=== PATIENT | female | born 1930 | race Caucasian/White ===

== ENCOUNTER 2016-07-05 08:16 | Outpatient (CLI) | payer MEDICARE ==
[2016-07-05 12:58] LABS: ALT (SGPT) 14 U/L (0-55); AST (SGOT) 16 U/L (5-34); Alkaline Phosphatase 92 U/L (40-150); Anion Gap 12 mmol/L (10-20); BUN (Urea Nitrogen) 26 mg/dL (9.8-20.1); Bilirubin, Direct 0.4 mg/dL (0.1-0.3); Bilirubin, Total 1.1 mg/dL (0.2-1.2); Calc. Creatinine Clearance 0 mL/min (70-130); Calcium 9.7 mg/dL (7.8-10.44); Carbon Dioxide 16 mmol/L (23-31); Chloride 119 mmol/L (98-107); Estimated GFR-MDRD 22; LDL Cholesterol, Calculated 37 mg/dL; Protein, Total 6.5 g/dL (5.8-8.1)
[2016-07-05 13:23] LABS: Hemoglobin A1c 5.3 % (4.0-6.0)
[2016-07-05 13:50] LABS: #Eosinphils 0.2 thou/uL (0.0-0.7); #Monocytes 0.4 thou/uL (0.11-0.59); #Neutrophils 3.2 thou/uL (1.40-6.50); %Basophils 0.4 % (0.0-1.0); %Eosinophils 4.2 % (0.0-10.0); %Lymphocytes 20.7 % (21.0-51.0); %Monocytes 8.8 % (0.0-10.0); Anisocytosis SLIGHT = 6-15 cells (100X) (0-5/hpf); Hematocrit 38.7 % (36.0-47.0); Mean Platelet Volume 6.4 fL (7.4-10.4); Red Blood Cell (RBC) Count 4.71 mill/uL (4.20-5.40); White Blood Cell (WBC) Count 4.8 thou/uL (4.8-10.8)
== END 2016-07-05 08:17 ==
LOC: NAVSJIPCSP 08:16
PROVIDERS: ATTEND Family Medicine
DX: E78.5 Hyperlipidemia, unspecified (principal); E20.9 Hypoparathyroidism, unspecified; I12.9 Hypertensive chronic kidney disease with stage 1 through stage 4 chronic kidney disease, or unspecified chronic kidney disease; N18.9 Chronic kidney disease, unspecified; N31.0 Uninhibited neuropathic bladder, not elsewhere classified; Z79.899 Other long term (current) drug therapy
CPT/HCPCS: 36415; 80048; 80061; 80076; 83036; 84443; 85025

== ENCOUNTER 2016-07-13 11:13 | Outpatient (CLI) | payer MEDICARE ==
[2016-07-13 12:36] LABS: Bilirubin Negative (Negative); Blood, Urine Large (Negative); Glucose, Urine (Dipstick) Negative (Negative); Ketone, Urine Negative (Negative); Nitrite Negative (Negative); Protein, Urine (Dipstick) 100 mg/dL (Neg-Trace); Urobilinogen 0.2 mg/dL (0.2-1.0)
[2016-07-13 12:43] LABS: Anion Gap 17 mmol/L (10-20); BUN (Urea Nitrogen) 37 mg/dL (9.8-20.1); Calc. Creatinine Clearance 0 mL/min (70-130); Carbon Dioxide 17 mmol/L (23-31); Chloride 109 mmol/L (98-107); Estimated GFR-MDRD 18
[2016-07-13 13:17] LABS: Bacteria/HPF 1+ HPF (None Seen); Squamous Epithelial 0-3 HPF (0-3)
== END 2016-07-13 11:14 | disposition home or self-care (01) ==
LOC: NAVSJIPCSP 11:13
PROVIDERS: ATTEND Urology
DX: N30.21 Other chronic cystitis with hematuria (principal)
CPT/HCPCS: 80048; 81001; 87086

== ENCOUNTER 2016-07-19 09:59 | Outpatient (CLI) | payer MEDICARE ==
--- NOTE | 2016-07-19 13:39 | ULT ---
BILATERAL CAROTID DUPLEX ULTRASOUND: DATE: 07/19/16 HISTORY: Carotid stenosis, atherosclerotic vascular disease. TECHNIQUE: Melara scale ultrasound with color flow and spectral Doppler imaging of the extracranial carotid arter y systems performed. FINDINGS: There is plaque formation on either side. The peak systolic velocity in the right ICA measures 142 cm/second with an end-diastolic velocity of 38 cm/second and a systolic ratio of 1.88. The peak systolic velocity in the left ICA measures 89 cm/second with an end-diastolic velocity of 8 0 cm/second and a systolic ratio of 1.03. Flow in both vertebral arteries remains antegrade. IMPRESSION: Moderate (50-59%) stenosis involving the right ICA. POS: [facility]
== END 2016-07-19 10:00 | disposition home or self-care (01) ==
LOC: NAV ULT 09:59
PROVIDERS: ATTEND Family Medicine
DX: I65.29 Occlusion and stenosis of unspecified carotid artery (principal)
CPT/HCPCS: 93880

== ENCOUNTER 2016-08-25 10:07 | Emergency (ER) | payer MEDICARE ==
[2016-08-25] MEDS ORDERED: Ondansetron HCl/PF 4 MG/2 ML Vial ONE (10:32)
[2016-08-25 10:59] LABS: ALT (SGPT) 10 U/L (0-55); AST (SGOT) 17 U/L (5-34); Albumin 3.8 g/dL (3.4-4.8); Alkaline Phosphatase 84 U/L (40-150); Anion Gap 17 mmol/L (10-20); BUN (Urea Nitrogen) 23 mg/dL (9.8-20.1); Bilirubin, Total 1.7 mg/dL (0.2-1.2); CK (CPK) 40 U/L (29-168); Calc. Creatinine Clearance 0 mL/min (70-130); Calcium 10.2 mg/dL (7.8-10.44); Carbon Dioxide 13 mmol/L (23-31); Chloride 111 mmol/L (98-107); Estimated GFR-MDRD 23; Globulin 3.3 g/dL (2.4-3.5); Glucose 140 mg/dL (83-110); Lipase 9 U/L (8-78); Potassium 4.2 mmol/L (3.5-5.1); Protein, Total 7.1 g/dL (5.8-8.1); Sodium 137 mmol/L (136-145)
[2016-08-25 11:00] LABS: Troponin I 0.022 ng/mL (< 0.028)
[2016-08-25 11:12] LABS: #Lymphocytes 1.2 thou/uL (1.20-3.40); #Monocytes 0.3 thou/uL (0.11-0.59); #Neutrophils 6.4 thou/uL (1.40-6.50); %Basophils 0.3 % (0.0-1.0); %Eosinophils 0.5 % (0.0-10.0); %Lymphocytes 14.8 % (21.0-51.0); %Monocytes 3.8 % (0.0-10.0); %Neutrophils 80.6 % (42.0-75.0); Hemoglobin 12.3 g/dL (12.0-16.0); MDiff Complete? YES; Mean Corpuscular Hemoglobin 24.2 pg (27.0-31.0); Mean Corpuscular Volume 80.7 fl (81.0-99.0); Mean Platelet Volume 6.4 fL (7.4-10.4); Platelet Count 172 thou/uL (130-400); RBC Distribution Width 15.1 % (11.5-14.5); White Blood Cell (WBC) Count 7.9 thou/uL (4.8-10.8)
[2016-08-25 11:13] LABS: Anisocytosis SLIGHT = 6-15 cells (100X) (0-5/hpf); Eosinophils 1 % (0-10); Lymphocytes 18 % (21-51); Monocytes 7 % (0-10); Neutrophil 74 % (42-75); PLT Morphology Comment Appears Adequate
--- NOTE | 2016-08-25 11:23 | RAD ---
PORTABLE CHEST 1 VIEW: DATE: 08/25/16. TIME: 10:54 a.m. HISTORY: Epigastric pain, vomiting, and nausea. FINDINGS: Comparison is made with the exam of 08/26/08. The heart size I borderline. No focal areas of consolidation, pneumothorax, mery pulmonary edema, or pleural effusions are seen. IMPRESSION: No acute process. POS: [facility]
[2016-08-25] MEDS ORDERED: Lidocaine Viscous Sol 2% 15 ml UD Cup ONE (12:05)
[2016-08-25] MEDS ORDERED: Mag-Al Plus 1200 MG/1200 MG/120 MG/30 ML UDCUP ONE (12:06)
[2016-08-25] MEDS ORDERED: Pantoprazole 40 MG VIAL ONE (12:45)
== END 2016-08-25 13:00 | disposition home or self-care (01) ==
LOC: NAV ERS 10:07
DX: R10.13 Epigastric pain (principal); I10 Essential (primary) hypertension; I25.2 Old myocardial infarction
CPT/HCPCS: 71010; 80053; 82553; 83690; 84484; 85025; 93005; 96374; 96375; C9113; J2405

== ENCOUNTER 2016-11-02 10:07 | Outpatient (CLI) | payer MEDICARE ==
[2016-11-02 11:01] LABS: Bilirubin Negative (Negative); Blood, Urine Moderate (Negative); Clarity Cloudy (Clear); Glucose, Urine (Dipstick) Negative (Negative); Leukocyte Large (Negative); Nitrite Negative (Negative); Protein, Urine (Dipstick) > or equal to 300 mg/dL (Neg-Trace); Urobilinogen 0.2 mg/dL (0.2-1.0)
[2016-11-02 11:04] LABS: Bacteria/HPF 1+ HPF (None Seen); Other Microscopic Description NO; Squamous Epithelial 0-3 HPF (0-3)
[2016-11-02 14:16] LABS: Anion Gap 14 mmol/L (10-20); BUN (Urea Nitrogen) 30 mg/dL (9.8-20.1); Calc. Creatinine Clearance 0 mL/min (70-130); Calcium 9.4 mg/dL (7.8-10.44); Carbon Dioxide 17 mmol/L (23-31); Chloride 113 mmol/L (98-107); Estimated GFR-MDRD 26; Glucose 91 mg/dL (83-110); Phosphorus 3.5 mg/dL (2.3-4.7); Potassium 3.6 mmol/L (3.5-5.1); Sodium 140 mmol/L (136-145)
[2016-11-02 14:23] LABS: #Eosinphils 0.2 thou/uL (0.0-0.7); #Lymphocytes 0.6 thou/uL (1.20-3.40); #Monocytes 0.4 thou/uL (0.11-0.59); #Neutrophils 2.9 thou/uL (1.40-6.50); %Basophils 0.5 % (0.0-1.0); %Eosinophils 5.8 % (0.0-10.0); %Lymphocytes 15.2 % (21.0-51.0); %Neutrophils 68.6 % (42.0-75.0); Anisocytosis SLIGHT = 6-15 cells (100X) (0-5/hpf); Hemoglobin 10.8 g/dL (12.0-16.0); MDiff Complete? YES; Mean Corpuscular HGB CONC 29.7 g/dL (32.0-36.0); Mean Corpuscular Hemoglobin 23.5 pg (27.0-31.0); Mean Corpuscular Volume 79.3 fl (81.0-99.0); PLT Morphology Comment Appears Adequate; Platelet Count 135 thou/uL (130-400); Red Blood Cell (RBC) Count 4.59 mill/uL (4.20-5.40); White Blood Cell (WBC) Count 4.2 thou/uL (4.8-10.8)
[2016-11-02 14:28] LABS: Follow-up Chemistry Comp? YES; Follow-up Result - Chemistry REPORT FAXED
== END 2016-11-02 10:08 | disposition home or self-care (01) ==
LOC: NAV LAB 10:07
PROVIDERS: ATTEND Urology
DX: N18.4 Chronic kidney disease, stage 4 (severe) (principal); R30.0 Dysuria; R35.0 Frequency of micturition
CPT/HCPCS: 36415; 80048; 81001; 83970; 84100; 85025; 87077; 87086

== ENCOUNTER 2017-01-05 14:14 | Outpatient (CLI) | payer MEDICARE ==
[2017-01-05 14:55] LABS: Anion Gap 14 mmol/L (10-20); BUN (Urea Nitrogen) 30 mg/dL (9.8-20.1); Calc. Creatinine Clearance 0 mL/min (70-130); Calcium 9.6 mg/dL (7.8-10.44); Carbon Dioxide 15 mmol/L (23-31); Chloride 114 mmol/L (98-107); Estimated GFR-MDRD 25; Glucose 85 mg/dL (83-110); Potassium 3.9 mmol/L (3.5-5.1); Sodium 139 mmol/L (136-145)
== END 2017-01-05 14:15 | disposition home or self-care (01) ==
LOC: NAV LABSP 14:14
PROVIDERS: ATTEND Internal Medicine Nephrology
DX: N18.4 Chronic kidney disease, stage 4 (severe) (principal)
CPT/HCPCS: 80048; 83970

== ENCOUNTER 2018-03-14 09:05 | Emergency (ER) | payer MEDICARE ==
[2018-03-14] MEDS ORDERED: Sodium Chloride 0.9% 1,000 ML ONE ×2 (09:43→12:04)
[2018-03-14 10:15] LABS: ALT (SGPT) 10 U/L (8-55); AST (SGOT) 15 U/L (5-34); Albumin 3.8 g/dL (3.4-4.8); Alkaline Phosphatase 86 U/L (40-150); Anion Gap 20 mmol/L (10-20); BUN (Urea Nitrogen) 67 mg/dL (9.8-20.1); Bilirubin, Total 1.6 mg/dL (0.2-1.2); Calc. Creatinine Clearance 0 mL/min (70-130); Calcium 11.5 mg/dL (7.8-10.44); Carbon Dioxide 12 mmol/L (23-31); Chloride 106 mmol/L (98-107); Estimated GFR-MDRD 12; Globulin 3.3 g/dL (2.4-3.5); Glucose 166 mg/dL (83-110); Potassium 5.3 mmol/L (3.5-5.1); Protein, Total 7.1 g/dL (6.0-8.3); Sodium 133 mmol/L (136-145)
[2018-03-14 10:24] LABS: #Lymphocytes 0.7 thou/uL (1.20-3.40); #Monocytes 0.7 thou/uL (0.11-0.59); #Neutrophils 15.9 thou/uL (1.40-6.50); %Basophils 0.2 % (0.0-1.0); %Lymphocytes 3.8 % (21.0-51.0); Hemoglobin 13.8 g/dL (12.0-16.0); Mean Corpuscular HGB CONC 31.3 g/dL (32.0-36.0); Mean Corpuscular Hemoglobin 25.3 pg (27.0-31.0); Mean Corpuscular Volume 80.8 fL (78.0-98.0); Mean Platelet Volume 7.6 fL (7.4-10.4); Platelet Count 183 thou/uL (130-400); RBC Distribution Width 15.4 % (11.5-14.5); Red Blood Cell (RBC) Count 5.44 mill/uL (4.20-5.40); White Blood Cell (WBC) Count 17.2 thou/uL (4.8-10.8)
[2018-03-14] MEDS ORDERED: Ondansetron HCl/PF 4 MG/2 ML Vial ONE (10:51)
[2018-03-14 11:22] LABS: CKMB 3.7 ng/mL (0-6.6); Troponin I 0.095 ng/mL (< 0.028)
[2018-03-14 11:23] LABS: Bilirubin Small (Negative); Blood, Urine Large (Negative); Clarity Cloudy (Clear); Glucose, Urine (Dipstick) Negative (Negative); Leukocyte Large (Negative); Nitrite Negative (Negative); Protein, Urine (Dipstick) > or equal to 300 mg/dL (Neg-Trace); Specific Gravity, Urine 1.025 (1.005-1.030); Urobilinogen 0.2 mg/dL (0.2-1.0); pH, Urine 5.5 (5.0-9.0)
[2018-03-14 11:28] LABS: Bacteria/HPF 3+ HPF (None Seen); Yeast-All Forms 1+ HPF (None Seen)
[2018-03-14 11:29] LABS: Other Microscopic Description NO
[2018-03-14] MEDS ORDERED: Sodium Chloride 0.9% 100 ML ONE (11:34)
[2018-03-14] MEDS ORDERED: cefTRIAXone\\ROCEPHIN 1 GM VIAL ONE (11:34)
--- NOTE | 2018-03-14 12:28 | RAD ---
PORTABLE CHEST: History: Constipation, abdominal pain. Comparison: 08-26-16 FINDINGS: The lungs are clear of infiltrate. There is question of nodular opacity in the right midlung which wa s not apparent on the prior portable exam. There are tiny calcified nodules in the left lower lobe wh ich are stable. No evidence of vascular congestion, infiltrate, or effusion. Heart and mediastinum un remarkable. IMPRESSION: Question new nodularity in the right midlung. This is not evaluated on a portable film. Recommend fol low up PA and lateral views of the chest. Code T Code LN POS: [facility]
--- NOTE | 2018-03-14 12:40 | CT ---
CT ABDOMEN AND PELVIS PERFORMED WITHOUT CONTRAST ENHANCEMENT: HISTORY: Abdominal pain. Constipation. COMPARISON: CT study from 01/03/2017. Voiding cystourethrogram from 12/06/2016. FINDINGS: ABDOMEN: The lung bases show no evidence of any focal infiltrative process. The liver and spleen, as well as the pancreas regions appear unremarkable on this noncontrast exam. The gallbladder has been removed. 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 The kidneys show a lobulated contour with cor tical scarring, subtle hypodensities, most compatible with cysts, and moderate bilateral hydronephros is with some dilatation of the proximal ureters. This is probably on the basis of the patient's rigger up kay reflux. No obstructing stone is seen. There is no significant periaortic or mesenteric adenopat hy. PELVIS: The bladder is not distended. There is evidence for a fecal impaction. Associated with the large amount of stool is wall thickening to the rectosigmoid colon in this region, and pericolonic f at stranding, particularly in the presacral fat, probably related to a colitis or proctitis type appe arance, probably related to the impaction. The bones are diffusely demineralized. No acute findings. IMPRESSION: 1. Findings are suggestive of a fecal impaction. The rectosigmoid colon also shows some wall thicke ishan, and there is pericolonic fat stranding with some edema change in the presacral fat, suggesting proctitis/colitis, probably just related to the impaction. 2. Moderate bilateral hydronephrosis, which is probably on the basis of the patient's chronic reflux . 3. Cortical scarring of both kidneys with subtle hypodensities, suggesting bilateral renal cysts. POS: [facility]
== END 2018-03-14 12:46 | disposition short-term general hospital (02) ==
LOC: NAV ERS 09:05
DX: N17.9 Acute kidney failure, unspecified (principal); E87.5 Hyperkalemia; I16.0 Hypertensive urgency; I25.2 Old myocardial infarction; I10 Essential (primary) hypertension
CPT/HCPCS: 71045; 74176; 80053; 81003; 81015; 82553; 83605; 83690; 84484; 85025; 87070; 87077; 87086; 87186; 87205; 93005; 96361; 96365; 96375; J0696; J2405; J7050